=== PATIENT | female | born 1970 | race Caucasian/White ===

== ENCOUNTER 2016-09-29 16:40 | Emergency (ER) | payer MEDICAID ==
[~2016-09-29 16:40] MED LIST: CLIN1CAP6 PO; METH10TA PO
[2016-09-29 16:41] VITALS: BP 128/70; PULSE 107; RESP 20; TEMP 99.8; O2SAT 98
[2016-09-29] MEDS ORDERED: IBUP800T23 PO (16:54)
[2016-09-29] MEDS ORDERED: CLIN1CAP5 PO (16:54)
--- NOTE | 2016-09-29 16:56 | PD ---
HPI Chief Complaint: Lump, Cyst, Hernia Time Seen by Provider: 16:53 Travel History International Travel<30 days: No Contact w/Intl Traveler<30days: No Traveled to known affect area: No History of Present Illness HPI 46-year-old female presents to the emergency Department with complaint of a boil to her buttocks 2 weeks. Reports subjective fever. Denies vomiting. Says is draining and she's been squeezing it as much as she can. Has not taken any medications or tried any treatments to alleviate her symptoms. Allergies to penicillin. Has no other medical complaints. No other modifying factors or associated signs and symptoms. PFSH Past Medical History Asthma: Yes Autoimmune Disease: No Anxiety: Yes Depression: Yes Cancer: No Cardiovascular Problems: No Diabetes: No Diminished Hearing: No Endocrine: No Genitourinary: No Immune Disorder: No Implanted Vascular Access Dvce: No Kidney Stones: Yes Musculoskeletal: Yes (SCOLIOSIS, CHRONIC BACK PAIN) Neurologic: No Psychiatric: Yes (TX DEPRESSION ANXIETY AND SUICIDE ATTEMPT IN PAST) Reproductive: No Respiratory: Yes Migraines: Yes Thyroid Disease: No ?: Not : 7 Para: 4 Tubal Ligation: Yes Past Surgical History Abdominal Surgery: No Cardiac Surgery: No Ear Surgery: No Endocrine Surgery: No Eye Surgery: No Genitourinary Surgery: No Gynecologic Surgery: No Neurologic Surgery: Yes (RIGHT ARM LACERATION) Oral Surgery: No Thoracic Surgery: No Other Surgery: Yes (TUBAL LIGATION) Social History Alcohol Use: No Tobacco Use: Yes (1 PPD) Substance Use: Yes (OCCASIONAL MARIJUANA, OPIATE DRUG ABUSE) Allergies-Medications (Allergen,Severity, Reaction): Coded Allergies: Penicillin (Verified Allergy, Intermediate, YEAST INFECTION, 09/29/16) Reported Meds & Prescriptions Reported Meds & Active Scripts Active Ibuprofen 800 Mg Tab 800 Mg PO Q6HR PRN Clindamycin (Clindamycin HCl) 150 Mg Cap 450 Mg PO Q6H 10 Days Clindamycin Hcl (Clindamycin HCl) 300 Mg Cap 300 Mg PO TID 10 Days Reported Methadone HCl (Methadone Hcl) 10 Mg Tab 120 Mg PO DAILY Review of Systems Except as stated in HPI: all other systems reviewed are Neg Physical Exam Narrative GENERAL: Well-nourished, well-developed patient, in no acute distress; low- grade fever 99.8; nontoxic-appearing SKIN: There is an indurated area to the left inner buttocks which measures about 2.5 cm in diameter. It is fluctuant and it is draining purulent drainage. There is a zone of inflammation around it but no lymphangitis. HEAD: Atraumatic. Normocephalic. EYES: Pupils equal and round. No scleral icterus. No injection or drainage. ENT: Mucosa pink and moist. Airway patent. NECK: Trachea midline. CARDIOVASCULAR: Regular rate. RESPIRATORY: No accessory muscle use. GASTROINTESTINAL: Rounded. MUSCULOSKELETAL: No obvious deformities. No clubbing. No cyanosis. No edema. NEUROLOGICAL: Awake and alert. Oriented 3. No obvious cranial nerve deficits. Motor grossly within normal limits. Normal speech. PSYCHIATRIC: Appropriate mood and affect; insight and judgment normal. Data Data Last Documented VS Vital Signs Date Time Temp Pulse Resp B/P Pulse Ox O2 Delivery O2 Flow Rate FiO2 09/29/16 16:41 99.8 107 20 128/70 98 Room Air Orders Ketorolac Inj (Toradol Inj) (09/29/16 17:00) [facility] Medical Decision Making Medical Screen Exam Complete: Yes Emergency Medical Condition: Yes Medical Record Reviewed: Yes Differential Diagnosis Skin abscess, cellulitis, perirectal abscess Narrative Course 46-year-old female with an abscess to the left inner buttocks. Patient with low -grade fever 99.8. She reports subjective fever. She is nontoxic-appearing. Heart rate recheck on physical exam is approximately 90 bpm. Abscess is draining purulent drainage. The abscess was squeezed and drained in the ER. Wound culture pending. Toradol administered in the ER. Clindamycin and ibuprofen prescribed for home. Instructed patient to return to the emergency department in 24-48 hours for abscess recheck; instructed her to follow up earlier if symptoms worsen despite antibiotics. Instructed patient to follow up with primary care provider. Patient verbalizes understanding and agreement with treatment plan. Patient is medically cleared and stable for discharge. Discussed reasons to return to the emergency department. Patient agrees with treatment plan. The patients vital signs are stable and the patient is stable for outpatient follow-up and treatment. Patient discharged home, stable and in no acute distress. Diagnosis Primary Impression: Abscess of left buttock Referrals: Primary Care Physician Patient Instructions: Abscess (ED), Abscess Follow-up (ED), Abscess Incision and Drainage (ED), General Instructions Departure Forms: Tests/Procedures, Work Release Enter return to work date: Oct 02, 2016 Additional Instructions: Complete full course of antibiotics; if you do not have insurance, go to [facility] or [facility] for clindamycin Warm compresses to the affected area Keep area clean and dry Ibuprofen or Tylenol as directed and as needed for pain and inflammation Follow-up with primary care provider Return to emergency department immediately with worsening of symptoms Med/Other Pt SpecificInfo: Prescription(s) given Scripts Ibuprofen 800 Mg [id number] Mg PO Q6HR PRN (PAIN) #30 TAB Ref 0 Prov:Adriana Walton 09/29/16 Clindamycin 150 Mg [id number] Mg PO Q6H 10 Days Ref 0 Prov:Adriana Walton 09/29/16 Disposition: 01 DISCHARGE HOME Condition: Stable Adriana Walton Sep 29, 2016 16:56
[2016-09-29] MEDS ORDERED: KETOROLAC TROMETHAMINE 60 MG/2 ML (IM) VIAL IM ONE (17:00)
== END 2016-09-29 17:29 | disposition home or self-care (01) ==
LOC: NEPD 16:40
DX: L02.31 Cutaneous abscess of buttock (principal); B95.61 Methicillin susceptible Staphylococcus aureus infection as the cause of diseases classified elsewhere; Z88.0 Allergy status to penicillin
CPT/HCPCS: 86403; 87070; 87186; 96372; 99284; J1885; 87205